=== PATIENT | female | born 1995 | race Two or more races ===

== ENCOUNTER 2017-06-10 09:28 | Emergency (ER) | payer SELFPAY ==
[~2017-06-10] VITALS: Ht 149.9 cm; Wt 86.0 kg
[2017-06-10 10:36] VITALS: BP 108/62
== END 2017-06-10 13:12 | disposition home or self-care (01) ==
LOC: ER 09:28
DX: J02.0 Streptococcal pharyngitis (principal)
CPT/HCPCS: 87430; 99283